=== PATIENT | female | born 1995 | race Caucasian/White ===

== ENCOUNTER 2018-02-07 12:00 | Outpatient (RCR) | payer MEDICAID ==
[2014-06-16 11:19] VITALS: Wt 63.2 kg
[2018-01-10 14:25] VITALS: BP 114/71
[2018-01-10 15:57] VITALS: BP 123/80
--- NOTE | 2018-01-10 19:38 | ONCOLOGY FOLLOW UP NOTE ---
EVENT DATE: January 10, 2018 DIAGNOSES 1. Hereditary hemochromatosis with homozygous state for H63D mutation. 2. History of ovarian cyst. 3. History of gastrointestinal disturbances with alternating diarrhea and constipation. CHIEF COMPLAINT The patient is here today for followup of her hereditary hemochromatosis. HEMATOLOGY HISTORY The patient is a 22-year-old female who had past medical history of ovarian cyst and gastrointestinal disturbances. As per patient, she has been evaluated by different doctors in the past for her GI symptoms without having an underlying disease for her illness. Her father had hemochromatosis and phlebotomy sessions. The patient is referred to evaluate for that. She had iron studies done by her doctor recently, which showed normal chem panel with normal TSH at 1.55. CBC showed white count 6.6, hemoglobin 15, hematocrit 43.3 , platelets 289,000. Iron studies showed serum iron of 139, transferrin 185, TIBC 259 and iron saturation 53.7%. Her ferritin was 123. Genetic testing for hemochromatosis came back positive for homozygous state for H63D mutation. HISTORY OF PRESENT ILLNESS Patient is here today for followup of her hereditary hemochromatosis. Patient did not show up for the last year. She is complaining of pain in the ankles and fingers. She is weak, tired and fatigued, but other than that her general condition is stable. PAST MEDICAL HISTORY 1. Ovarian cyst. 2. Gastrointestinal disturbances with alternating diarrhea and constipation. PAST SURGICAL HISTORY Insignificant. SOCIAL HISTORY The patient is single with one son. 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 She smokes about three cigarettes a day for the last two years. She occasionally drinks alcohol. No abuse of illicit drugs. FAMILY HISTORY Father has hemochromatosis. CURRENT MEDICATIONS None. ALLERGIES No known drug allergies. REVIEW OF SYSTEMS CONSTITUTIONAL: No appetite or weight change. No fever, chills or sweating. No recent infection. HEENT: Ears: No tinnitus or hearing problem. Nose: No nasal discharge or epistaxis. Throat: No sore throat or mouth ulcers. Eyes: No diplopia or visual changes. RESPIRATORY: No shortness of breath. No cough, expectoration or hemoptysis. CARDIOVASCULAR: No chest pain, orthopnea, or paroxysmal nocturnal dyspnea (PND) . No edema. No palpitations. GASTROINTESTINAL: No nausea or vomiting. She has alternating diarrhea and constipation. No change in bowel movements. No heartburn or swallowing difficulties. No abdominal pain. No jaundice. No hematemesis, melena or rectal bleeding. GENITOURINARY: No hematuria or dysuria. MUSCULOSKELETAL: Patient has pain in the ankles and fingers. NEUROLOGICAL: No tingling or numbness in the hands or feet. No headaches or convulsions. HEMATOLOGIC/LYMPHATIC: She is weak, tired and fatigued. SKIN: No skin rash or lumps. PSYCHIATRIC: No anxiety or depression. PHYSICAL EXAMINATION GENERAL: Looks stable. Well-developed, well-nourished, and in no acute distress. VITAL SIGNS: Blood pressure 114/71, pulse 75 per minute, respirations 16 per minute, temperature 98.4, pulse oximetry 96% on room air. HEENT: Head: Atraumatic. No sinus tenderness to palpation. Eyes: No icterus or conjunctivitis. Mouth and throat: No oral thrush or mucositis. NECK: Supple. No cervical or supraclavicular lymphadenopathy. LUNGS: Clear to auscultation and percussion bilaterally. HEART: Regular rate and rhythm. No gallops, murmurs, clicks or rubs. ABDOMEN: Soft and lax. No tenderness. No hepatosplenomegaly. No masses. EXTREMITIES: No cyanosis, clubbing or edema. LYMPHATICS: No peripheral lymphadenopathy. NEUROLOGICAL: Conscious, alert and oriented times three. No focal motor or sensory deficits. PSYCHIATRIC: Mood and affect appear normal. SKIN: No skin rash, bruise or purpuric eruption. DIAGNOSTIC DATA CBC showed white count 4000, hemoglobin 14.9, hematocrit 42.3 and platelet 251, 000. Serum iron 240, TIBC 255, iron saturation 80%. Ferritin is still pending. ASSESSMENT 1. Hereditary hemochromatosis with heterozygous state for h63D mutation of the HFE gene. Ferritin was 123 and iron saturation 53.7%. Patient received a phlebotomy session with drop of her iron saturation to 36.2% and ferritin 27. Patient's current ferritin is pending, but her iron saturation currently is 80% , which means that the patient will need phlebotomy to decrease that number to below 60% and to deplete the ferritin to below 50. I am planning to proceed with phlebotomy on a weekly basis as long as her hematocrit is above 30%. I will see her in a month with CBC, chem panel and iron studies with ferritin and I will check her CBC on a weekly basis until I will see her with next visit. 2. History of ovarian cyst. 3. History of gastrointestinal disturbance with alternating diarrhea and constipation in the past. PLAN 1. Continue followup. 2. Patient to return in one month with CBC, chem panel and iron studies. 3. CBC to be checked weekly. 4. Phlebotomize 500 mL of blood every week. 5. Consider phlebotomy if ferritin above 50 and/or iron saturation about 60%. 6. Patient to contact us for any new concerns or complaints. MTDD
[2018-01-16 13:07] VITALS: BP 110/88
[2018-01-16 13:58] VITALS: BP 110/72
[2018-01-23 13:41] VITALS: BP 108/76
[2018-01-23 14:43] VITALS: BP 104/79
--- NOTE | 2018-01-23 16:59 | Medical Nutrition Therapy ---
Nutritional Education Nutrition Education Topic: Other (Iron Content of Foods) Learning Readiness: Eager Teaching Methods: Discussion, Handout Response to Teaching: Verbalize understanding Teaching Recipient: Patient Nutrition Counseling: patient requested information about iron content of foods and hemochromatosis patient states she will try to reduce her red meat intake recommended low to moderate iron foods, 15 mg iron/day Nutrition Monitoring & Eval RD Patient Assessment Time: 15 minutes (less than 15 minutes ) RD Assessment Type: RD Education LAQUITA MADRID RDN, SLIME January 23, 2018 16:45
[2018-01-30 11:01] VITALS: BP 109/72
[2018-01-30 11:39] VITALS: BP 109/73
[~2018-02-07 12:00] MED LIST: ARI2 PO; CIPR-344 PO; CITA-145 PO; HYDR-4225 PO; HYDR-4309 PO; IBUP800T37 PO; IUD ASDIRECTED; LAMO25TA64 PO; LOR5/325 PO; ONDA4TAB PO; PROM-110 PO
[2018-02-07 12:29] LABS: PLATELET COUNT, AUTOMATED 286 K/uL (150-450)
[2018-02-07 12:31] VITALS: BP 102/73
[2018-02-07] MEDS ORDERED: LIDOCAINE/SOD BICARB 8.4% SYR ID PRN (12:40)
[2018-02-07] MEDS ORDERED: NS(*) 0.9% 100 ML BAG 100 ML IVPB PRN (12:40)
[2018-02-07] MEDS ORDERED: DEXTROSE 5%(*) 100 ML BAG 100 ML IVPB PRN (12:40)
[2018-02-07] MEDS ORDERED: NS(*) 0.9% 1000 ML BAG 1,000 ML IV SCH (13:40)
--- NOTE | 2018-02-07 16:55 | ONCOLOGY FOLLOW UP NOTE ---
EVENT DATE: February 07, 2018 DIAGNOSES 1. Hereditary hemochromatosis with homozygous state for H63D mutation. 2. History of ovarian cyst. 3. History of gastrointestinal disturbances with alternating diarrhea and constipation. CHIEF COMPLAINT The patient is here today for followup of her hereditary hemochromatosis. HEMATOLOGY HISTORY The patient is a 22-year-old female who had past medical history of ovarian cyst and gastrointestinal disturbances. As per patient, she has been evaluated by different doctors in the past for her GI symptoms without having an underlying disease for her illness. Her father had hemochromatosis and phlebotomy sessions. The patient is referred to evaluate for that. She had iron studies done by her doctor recently, which showed normal chem panel with normal TSH at 1.55. CBC showed white count 6.6, hemoglobin 15, hematocrit 43.3 , platelets 289,000. Iron studies showed serum iron of 139, transferrin 185, TIBC 259 and iron saturation 53.7%. Her ferritin was 123. Genetic testing for hemochromatosis came back positive for homozygous state for H63D mutation. HISTORY OF PRESENT ILLNESS Patient is here today for followup of her hereditary hemochromatosis. She is complaining that after her last two or three phlebotomies, she developed like syncope about two hours after the procedure when she went home. She is complaining of occasional nausea. She has also occasional headache. She is weak, tired and fatigued. PAST MEDICAL HISTORY 1. Ovarian cyst. 2. Gastrointestinal disturbances with alternating diarrhea and constipation. PAST SURGICAL HISTORY Insignificant. SOCIAL HISTORY The patient is single with one son. 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 She smokes about three cigarettes a day for the last two years. She occasionally drinks alcohol. No abuse of illicit drugs. FAMILY HISTORY Father has hemochromatosis. CURRENT MEDICATIONS None. ALLERGIES No known drug allergies. REVIEW OF SYSTEMS CONSTITUTIONAL: No appetite or weight change. No fever. She has chills. No sweating. No recent infection. HEENT: Ears: No tinnitus or hearing problem. Nose: No nasal discharge or epistaxis. Throat: No sore throat or mouth ulcers. Eyes: No diplopia or visual changes. RESPIRATORY: No shortness of breath. No cough, expectoration or hemoptysis. CARDIOVASCULAR: No chest pain, orthopnea, or paroxysmal nocturnal dyspnea (PND) . No edema. No palpitations. GASTROINTESTINAL: She has occasional nausea. No vomiting. She has alternating diarrhea and constipation. No change in bowel movements. No heartburn or swallowing difficulties. No abdominal pain. No jaundice. No hematemesis, melena or rectal bleeding. GENITOURINARY: No hematuria or dysuria. MUSCULOSKELETAL: Patient has pain in the ankles and fingers. NEUROLOGICAL: She has syncope about two hours after her phlebotomy for the last three sessions. She has also occasional headache. No tingling or numbness in the hands or feet. No convulsions. She has occasional headache. HEMATOLOGIC/LYMPHATIC: She is weak, tired and fatigued. SKIN: No skin rash or lumps. PSYCHIATRIC: No anxiety or depression. PHYSICAL EXAMINATION GENERAL: Looks stable. Well-developed, well-nourished, and in no acute distress. VITAL SIGNS: Blood pressure 102/73, pulse 80 per minute, respirations 16 per minute, temperature 98.5, pulse oximetry 100% on room air. HEENT: Head: Atraumatic. No sinus tenderness to palpation. Eyes: No icterus or conjunctivitis. Mouth and throat: No oral thrush or mucositis. NECK: Supple. No cervical or supraclavicular lymphadenopathy. LUNGS: Clear to auscultation and percussion bilaterally. HEART: Regular rate and rhythm. No gallops, murmurs, clicks or rubs. ABDOMEN: Soft and lax. No tenderness. No hepatosplenomegaly. No masses. EXTREMITIES: No cyanosis, clubbing or edema. LYMPHATICS: No peripheral lymphadenopathy. NEUROLOGICAL: Conscious, alert and oriented times three. No focal motor or sensory deficits. PSYCHIATRIC: Mood and affect appear normal. SKIN: No skin rash, bruise or purpuric eruption. DIAGNOSTIC DATA CBC showed white count 3.8, hemoglobin 11.8, hematocrit 34, platelets 286,000. Serum iron 204, TIBC 255, iron saturation 80%. Ferritin is 51. Her iron studies were done on January 20, 2018. ASSESSMENT 1. Hereditary hemochromatosis with heterozygous state for h63D mutation. Ferritin was 123 and iron saturation 53.7%. Patient received a phlebotomy session with drop of her iron saturation to 36.2% and ferritin 27. Her last ferritin level on January 10, 2018 was 51, and iron saturation 80%. Patient complained of syncope for the last three sessions of phlebotomy, and for this reason I am planning to run 2 L of normal saline with the start of her phlebotomy sessions. I am planning to do phlebotomy whenever her iron saturation is above 60% and ferritin above 50%. And I will continue with phlebotomy as long as her hematocrit is above 30%. I am planning to see her again in two months with CBC, chem panel, iron studies with ferritin, and I will check her CBC every other week. 2. History of ovarian cyst. 3. History of gastrointestinal disturbance with alternating diarrhea and constipation. PLAN 1. Continue followup. 2. Patient to return in two months with CBC, chem panel and iron studies. 3. CBC to be checked every other week. 4. Phlebotomize 500 mL of blood every other week as indicated. 5. Consider phlebotomy if ferritin above 50 and/or iron saturation about 60%. 6. Infuse 2 L of normal saline over three hours with the start of her phlebotomy sessions. 7. Patient to contact us for any new concern or complaints. CHRISTIAND
== END 2018-02-08 10:01 | disposition home or self-care (01) ==
LOC: ONC 12:00
PROVIDERS: ATTEND Internal Medicine Hematology
DX: E83.110 Hereditary hemochromatosis (principal); R53.1 Weakness; R53.83 Other fatigue; F17.210 Nicotine dependence, cigarettes, uncomplicated
CPT/HCPCS: 36415; 82728; 83540; 83550; 85025; 85027; 96360; 96361; 99195; G0463; J7030; 82040; 82247; 82310; 82374; 82435; 82565; 82947; 84075; 84132; 84155; 84295; 84450; 84460; 84520; 99212

== ENCOUNTER 2018-05-03 08:30 | Outpatient (RCR) | payer MEDICAID ==
[2014-06-16 11:19] VITALS: Wt 63.6 kg
[2018-04-30 10:32] LABS: PLATELET COUNT, AUTOMATED 246 K/uL (150-450)
[~2018-05-03 08:30] MED LIST changes: -HYDR-4309 PO; +HYDR-653 PO
[2018-05-03 08:42] VITALS: BP 116/80
--- NOTE | 2018-05-03 16:07 | ONCOLOGY FOLLOW UP NOTE ---
EVENT DATE: May 03, 2018 DIAGNOSES 1. Hereditary hemochromatosis with homozygous state for H63D mutation. 2. History of ovarian cyst. 3. History of gastrointestinal disturbances with alternating diarrhea and constipation. CHIEF COMPLAINT The patient is here today for followup of her hereditary hemochromatosis. HEMATOLOGY HISTORY The patient is a 22-year-old female who had past medical history of ovarian cyst and gastrointestinal disturbances. As per patient, she has been evaluated by different doctors in the past for her GI symptoms without having an underlying disease for her illness. Her father had hemochromatosis and phlebotomy sessions. The patient is referred to evaluate for that. She had iron studies done by her doctor recently, which showed normal chem panel with normal TSH at 1.55. CBC showed white count 6.6, hemoglobin 15, hematocrit 43.3, platelets 289,000. Iron studies showed serum iron of 139, transferrin 185, TIBC 259 and iron saturation 53.7%. Her ferritin was 123. Genetic testing for hemochromatosis came back positive for homozygous state for H63D mutation. HISTORY OF PRESENT ILLNESS Patient is here today for followup of her hereditary hemochromatosis. She is stable, but she is complaining of alternating diarrhea and constipation. She has pain in her ankles. She has frequent headaches and she is weak, tired and fatigued most of the time. PAST MEDICAL HISTORY 1. Ovarian cyst. 2. Gastrointestinal disturbances with alternating diarrhea and constipation. PAST SURGICAL HISTORY Insignificant. SOCIAL HISTORY The patient is single with one son. 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 She smokes about three cigarettes a day for the last two years. She occasionally drinks alcohol. No abuse of illicit drugs. FAMILY HISTORY Father has hemochromatosis. CURRENT MEDICATIONS None. ALLERGIES No known drug allergies. REVIEW OF SYSTEMS CONSTITUTIONAL: No appetite or weight change. No fever, chills or sweating. No recent infection. HEENT: Ears: No tinnitus or hearing problem. Nose: No nasal discharge or epistaxis. Throat: No sore throat or mouth ulcers. Eyes: No diplopia or visual changes. RESPIRATORY: No shortness of breath. No cough, expectoration or hemoptysis. CARDIOVASCULAR: No chest pain, orthopnea, or paroxysmal nocturnal dyspnea (PND). No edema. No palpitations. GASTROINTESTINAL: No nausea or vomiting. She has alternating diarrhea and constipation. No change in bowel movements. No heartburn or swallowing difficulties. No abdominal pain. No jaundice. No hematemesis, melena or rectal bleeding. GENITOURINARY: No hematuria or dysuria. MUSCULOSKELETAL: She has pain in her ankles. NEUROLOGICAL: No tingling or numbness in the hands or feet. She has frequent headaches. No convulsions. HEMATOLOGIC/LYMPHATIC: No bleeding or easy bruising. She is weak, tired and fatigued. No enlarged lymph nodes. SKIN: No skin rash or lumps. PSYCHIATRIC: No anxiety or depression. PHYSICAL EXAMINATION GENERAL: Looks stable. Well-developed, well-nourished, and in no acute distress. VITAL SIGNS: Blood pressure 116/80, pulse 76 per minute, respirations 16 per minute, temperature 96.7, pulse oximetry 96% on room air. HEENT: Head: Atraumatic. No sinus tenderness to palpation. Eyes: No icterus or conjunctivitis. Mouth and throat: No oral thrush or mucositis. NECK: Supple. No cervical or supraclavicular lymphadenopathy. LUNGS: Clear to auscultation and percussion bilaterally. HEART: Regular rate and rhythm. No gallops, murmurs, clicks or rubs. ABDOMEN: Soft and lax. No tenderness. No hepatosplenomegaly. No masses. EXTREMITIES: No cyanosis, clubbing or edema. LYMPHATICS: No peripheral lymphadenopathy. NEUROLOGICAL: Conscious, alert and oriented times three. No focal motor or sensory deficits. PSYCHIATRIC: Mood and affect appear normal. SKIN: No skin rash, bruise or purpuric eruption. DIAGNOSTIC DATA CBC showed white count 4.4, hemoglobin 14.5, hematocrit 42.8, platelets 246,000. Chem panel totally normal except carbon dioxide 18. Serum iron 52, TIBC 329, iron saturation 15.8% and ferritin 9. ASSESSMENT 1. Hereditary hemochromatosis with heterozygous state for h63D mutation. Ferritin was 123 and iron saturation was 53.7%. Patient received a phlebotomy session with drop of her iron saturation to 36.2 and ferritin 27. Her current iron studies show a ferritin of 9 and iron saturation 15.8. No indication for phlebotomy. My target for phlebotomy will be ferritin less than 50 and/or iron saturation less than 60%. I am planning to see the patient in four months from now with CBC, chem panel, iron studies with ferritin. During her phlebotomy session patient complained of syncope and for this reason we will run 2 L normal saline with the start of her phlebotomy sessions in the future. We will proceed with phlebotomy as long as her hematocrit is above 30%. 2. History of ovarian cyst. 3. History of gastrointestinal disturbance with alternating diarrhea and constipation. PLAN 1. Continue followup. 2. Consider phlebotomy if ferritin above 50 and/or iron saturation more than 60%. 3. Patient to return in four months with CBC, chem panel, iron studies with ferritin. 4. Patient to contact us for any new concern or complaints. 5. Infuse 2 L of normal saline over three hours with the start of her phlebotomy sessions if indicated. MTDD
== END 2018-07-25 ==
LOC: ONC 08:30
PROVIDERS: ATTEND Internal Medicine Hematology
DX: E83.110 Hereditary hemochromatosis (principal); R53.1 Weakness; R53.83 Other fatigue
CPT/HCPCS: 36415; 82728; 83540; 83550; 85025; G0463; 82040; 82247; 82310; 82374; 82435; 82565; 82947; 84075; 84132; 84155; 84295; 84450; 84460; 84520; 99212

== ENCOUNTER 2018-09-12 21:53 | Emergency (ER) | payer MEDICAID ==
[2014-06-16 11:19] VITALS: Wt 63.5 kg
[2018-09-12] MEDS ORDERED: CITA-145 PO (22:04)
[2018-09-12] MEDS ORDERED: ONDANSETRON 4 MG/2 ML VIAL IVP ONE (22:30)
[2018-09-12] MEDS ORDERED: NS(*) 0.9% 1000 ML BAG 1,000 ML IV ONE ×2 (22:30→23:05)
--- NOTE | 2018-09-12 22:37 | ER Report ---
History and Physical Time Seen By MD: 22:37 Hx. of Stated Complaint: patient states she has been having nausea, vomiting, and diarrhea for the last 8hours. patient having abominal pain and migraine as well. HPI/ROS CHIEF COMPLAINT: nausea and vomiting and diarrhea HISTORY OF PRESENT ILLNESS: This is a 23 year old female. Started having vomiting and diarrhea earlier today, about 8 hours. Has chronic stomach and bowel issues. Son came home from his fathers house with vomiting and diarrhea. She is not sure if she may have eaten some bad [employer] Brian. No problems with urination. she does have a headache as well. No fevers or chills with this. No cough or shortness of breath. Allergies: Coded Allergies: Latex, Natural Rubber (Verified Adverse Reaction, Intermediate, 09/12/18) Home Meds Active Scripts Ketorolac Tromethamine (KETOROLAC TROMETHAMINE) 10 Mg Tab, 10 MG PO Q6H PRN for PAIN, #12 TAB 0 Refills Prov:RESHMA BATES MD 09/13/18 Promethazine Hcl (PROMETHAZINE HCL) 25 Mg Tablet, 25 MG PO Q8H PRN for NAUSEA/VOMITING, #20 TAB 0 Refills Prov:RESHMA BATES MD 09/13/18 Reported Medications Citalopram Hydrobromide (CITALOPRAM HBR) 20 Mg Tablet, 40 MG PO QDAY, #5 TAB 09/12/18 Reviewed Nurses Notes: Yes Hx Smoking: Yes (2-3 cigarettes/day for 1.5 yrs) Smoking Status: Current: Every Day Smoker Exposure to Second Hand Smoke?: Yes Hx Substance Use Disorder: No Hx Alcohol Use: Yes Constitutional Vital Sign - Last 24 Hours 09/12/18 09/12/18 09/12/18 09/12/18 21:58 22:23 22:30 22:38 Temp 97.6 Pulse 67 81 85 Resp 24 B/P (MAP) 112/79 118/79 (92) Pulse Ox 99 92 97 O2 Delivery Room Air 09/12/18 09/12/18 09/12/18 09/12/18 23:00 23:08 23:30 23:38 Pulse 82 83 B/P (MAP) 104/71 (82) 108/73 (85) Pulse Ox 88 97 09/12/18 09/12/18 09/13/18 09/13/18 23:43 23:58 00:00 00:28 Pulse 85 ??? 85 B/P (MAP) 104/65 (78) Pulse Ox 100 95 95 09/13/18 09/13/18 09/13/18 00:30 00:40 00:45 Pulse ??? 89 B/P (MAP) 106/70 (82) Pulse Ox 95 94 Intake and Output 09/12/18 09/12/18 09/13/18 15:00 23:00 07:00 Intake Total 1000 ml 1000 ml Balance 1000 ml 1000 ml Physical Exam General Appearance: The patient is alert. No acute distress. Eyes: Pupils are equal, round. No pallor, injection or icterus. ENT: Mucous membranes are moist. Normal oral mucosa. Posterior oropharynx is normal. Neck: Supple and non tender. No lymphadenopathy. Respiratory: Lungs are clear to auscultation. Cardiovascular: Regular rate and rhythm. No murmurs, gallops or rubs. Normal capillary refill. Gastrointestinal: Abdomen is soft and with upper abdominal tenderness. Nondistended. No rebound or guarding. No masses or organomegaly. Hyperactive bowel sounds. No costovertebral angle tenderness with percussion. Neurological: Alert and oriented x3. Cranial nerves II through XII show no acute deficits on my exam. No focal neurologic deficits in the extremities. Skin: Warm and dry. No rashes. Musculoskeletal: No tenderness in palpation of the cervical, thoracic and lumbar spine. DIFFERENTIAL DIAGNOSIS: After history and physical exam, differential diagnosis was considered for nausea/vomiting and diarrhea, most likely viral in origin, bu t cannot rule out food poisoning as well. Medical Decision Making Data Points Result Diagram: 09/12/18221409/12/182214 Laboratory Hematology Test 09/12/18 22:15 09/12/18 22:33 Red Blood Count 5.48 M/uL (4.17-5.56) Mean Corpuscular Volume 90.8 fL (80.0-96.0) Mean Corpuscular Hemoglobin 31.6 pg (26.0-33.0) Mean Corpuscular Hemoglobin Concent 34.8 g/dL (32.0-36.0) Red Cell Distribution Width 12.8 % (11.5-14.5) Mean Platelet Volume 7.8 fL (7.2-11.1) Neutrophils (%) (Auto) 80.6 % (39.4-72.5) Lymphocytes (%) (Auto) 13.3 % (17.6-49.6) Monocytes (%) (Auto) 5.1 % (4.1-12.4) Eosinophils (%) (Auto) 0.8 % (0.4-6.7) Basophils (%) (Auto) 0.2 % (0.3-1.4) Nucleated RBC Relative Count (auto) 0.1 /100WBC Neutrophils # (Auto) 9.0 K/uL (2.0-7.4) Lymphocytes # (Auto) 1.5 K/uL (1.3-3.6) Monocytes # (Auto) 0.6 K/uL (0.3-1.0) Eosinophils # (Auto) 0.1 K/uL (0.0-0.5) Basophils # (Auto) 0.0 K/uL (0.0-0.1) Nucleated RBC Absolute Count (auto) 0.01 K/uL Sodium Level 142 mmol/L (137-145) Potassium Level 3.6 mmol/L (3.5-5.0) Chloride Level 107 mmol/L (98-107) Carbon Dioxide Level 22 mmol/L (22-31) Blood Urea Nitrogen 12 mg/dl (7-18) Creatinine 0.90 mg/dl (0.52-1.04) Glomerular Filtration Rate Calc > 60.0 Random Glucose 100 mg/dl (75-110) Calcium Level 10.0 mg/dl (8.4-10.2) Total Bilirubin 0.7 mg/dl (0.2-1.3) Aspartate Amino Transf (AST/SGOT) 25 U/L (0-35) Alanine Aminotransferase (ALT/SGPT) 22 U/L (0-56) Alkaline Phosphatase 71 U/L (0-126) Total Protein 8.7 g/dl (6.3-8.2) Albumin 5.1 g/dl (3.5-5.0) Urine Color Yellow Urine Clarity Cloudy Urine pH 5.0 pH (4.8-9.5) Urine Specific [place] 1.023 Urine Protein Negative mg/dL (NEGATIVE) Urine Glucose (UA) Negative mg/dL (NEGATIVE) Urine Ketones Negative mg/dL (NEGATIVE) Urine Blood Negative (NEGATIVE) Urine Nitrite Negative (NEGATIVE) Urine Bilirubin Negative (NEGATIVE) Urine Urobilinogen Negative mg/dL (0.2-1.9) Urine Leukocyte Esterase Moderate (NEGATIVE) Urine RBC 11 /HPF (0-2/HPF) Urine WBC 16 /HPF (0-5/HPF) Urine Squamous Epithelial Cells Many /LPF (</=FEW) Urine Bacteria Few /HPF (NONE-FEW) Urine Mucus Few /HPF (NONE-FEW) Chemistry Test 09/12/18 22:15 09/12/18 22:33 White Blood Count 11.2 k/uL (4.5-11.0) Red Blood Count 5.48 M/uL (4.17-5.56) Hemoglobin 17.3 g/dL (12.0-16.0) Hematocrit 49.8 % (34.0-47.0) Mean Corpuscular Volume 90.8 fL (80.0-96.0) Mean Corpuscular Hemoglobin 31.6 pg (26.0-33.0) Mean Corpuscular Hemoglobin Concent 34.8 g/dL (32.0-36.0) Red Cell Distribution Width 12.8 % (11.5-14.5) Platelet Count 297 K/uL (150-450) Mean Platelet Volume 7.8 fL (7.2-11.1) Neutrophils (%) (Auto) 80.6 % (39.4-72.5) Lymphocytes (%) (Auto) 13.3 % (17.6-49.6) Monocytes (%) (Auto) 5.1 % (4.1-12.4) Eosinophils (%) (Auto) 0.8 % (0.4-6.7) Basophils (%) (Auto) 0.2 % (0.3-1.4) Nucleated RBC Relative Count (auto) 0.1 /100WBC Neutrophils # (Auto) 9.0 K/uL (2.0-7.4) Lymphocytes # (Auto) 1.5 K/uL (1.3-3.6) Monocytes # (Auto) 0.6 K/uL (0.3-1.0) Eosinophils # (Auto) 0.1 K/uL (0.0-0.5) Basophils # (Auto) 0.0 K/uL (0.0-0.1) Nucleated RBC Absolute Count (auto) 0.01 K/uL Glomerular Filtration Rate Calc > 60.0 Calcium Level 10.0 mg/dl (8.4-10.2) Total Bilirubin 0.7 mg/dl (0.2-1.3) Aspartate Amino Transf (AST/SGOT) 25 U/L (0-35) Alanine Aminotransferase (ALT/SGPT) 22 U/L (0-56) Alkaline Phosphatase 71 U/L (0-126) Total Protein 8.7 g/dl (6.3-8.2) Albumin 5.1 g/dl (3.5-5.0) Urine Color Yellow Urine Clarity Cloudy Urine pH 5.0 pH (4.8-9.5) Urine Specific [place] 1.023 Urine Protein Negative mg/dL (NEGATIVE) Urine Glucose (UA) Negative mg/dL (NEGATIVE) Urine Ketones Negative mg/dL (NEGATIVE) Urine Blood Negative (NEGATIVE) Urine Nitrite Negative (NEGATIVE) Urine Bilirubin Negative (NEGATIVE) Urine Urobilinogen Negative mg/dL (0.2-1.9) Urine Leukocyte Esterase Moderate (NEGATIVE) Urine RBC 11 /HPF (0-2/HPF) Urine WBC 16 /HPF (0-5/HPF) Urine Squamous Epithelial Cells Many /LPF (</=FEW) Urine Bacteria Few /HPF (NONE-FEW) Urine Mucus Few /HPF (NONE-FEW) Urinalysis Test 09/12/18 22:33 Urine Color Yellow Urine Clarity Cloudy Urine pH 5.0 pH (4.8-9.5) Urine Specific [place] 1.023 Urine Protein Negative mg/dL (NEGATIVE) Urine Glucose (UA) Negative mg/dL (NEGATIVE) Urine Ketones Negative mg/dL (NEGATIVE) Urine Blood Negative (NEGATIVE) Urine Nitrite Negative (NEGATIVE) Urine Bilirubin Negative (NEGATIVE) Urine Urobilinogen Negative mg/dL (0.2-1.9) Urine Leukocyte Esterase Moderate (NEGATIVE) Urine RBC 11 /HPF (0-2/HPF) Urine WBC 16 /HPF (0-5/HPF) Urine Squamous Epithelial Cells Many /LPF (</=FEW) Urine Bacteria Few /HPF (NONE-FEW) Urine Mucus Few /HPF (NONE-FEW) ED Course/Re-evaluation Clinical Indication for ER IV: Hydration, IV Access ED Course Improved with Zofran and a liter of normal saline. Still with headache, so To radol and Phenergan given. A second liter of normal saline given as well. Decision to Disposition Date: Sep 13, 2018 Decision to Disposition Time: 00:37 Depart Departure Latest Vital Signs Vital Signs Date Time Temp Pulse Resp B/P (MAP) Pulse Ox O2 Delivery O2 Flow Rate FiO2 09/13/18 00:45 89 94 09/13/18 00:30 106/70 (82) 09/12/18 21:58 97.6 24 Room Air Impression: Primary Impression: Vomiting and diarrhea Condition: Improved Disposition: HOME OR SELF-CARE Referrals: BOB FAITH MD (PCP) New Scripts Ketorolac Tromethamine (KETOROLAC TROMETHAMINE) 10 Mg Tab 10 MG PO Q6H PRN for PAIN, #12 TAB 0 Refills Prov: RESHMA BATES MD 09/13/18 Promethazine Hcl (PROMETHAZINE HCL) 25 Mg Tablet 25 MG PO Q8H PRN for NAUSEA/VOMITING, #20 TAB 0 Refills Prov: RESHMA BATES MD 09/13/18 Patient Instructions: Acute Nausea and Vomiting (ED) Additional Instructions: Rest and increase fluid intake. Take Phenergan 25mg tablets, one every 8 hours as needed for vomiting or nausea. Take Toradol 10mg, one every 6 hours as needed for headache or pain RESHMA BATES MD Sep 12, 2018 22:37
[2018-09-12 22:40] LABS: PLATELET COUNT, AUTOMATED 297 K/uL (150-450)
[2018-09-12] MEDS ORDERED: PROMETHAZINE 25 MG/ML 1 ML AMP IVP ONE (23:15)
[2018-09-12] MEDS ORDERED: KETOROLAC 15 MG/ML VIAL IVP ONE (23:15)
[2018-09-13 00:30] VITALS: BP 106/70
[2018-09-13] MEDS ORDERED: KET10 PO (00:39)
[2018-09-13] MEDS ORDERED: PROM-110 PO (00:39)
[2018-09-13] MEDS ORDERED: PROMETHAZINE HCL 25 MG TAB TH 2 TAB/BOTTLE PO ONE (00:40)
[2018-09-13] MEDS ORDERED: KETOROLAC TROM 10MG TAB PO ONE (00:40)
== END 2018-09-13 00:51 | disposition home or self-care (01) ==
LOC: ER 22:27
DX: R11.2 Nausea with vomiting, unspecified (principal)
CPT/HCPCS: 81001; 85025; 96361; 96374; 96375; 99284; J1885; J2405; J2550; J7030; 82040; 82247; 82310; 82374; 82435; 82565; 82947; 84075; 84132; 84155; 84295; 84450; 84460; 84520

== ENCOUNTER 2019-02-10 12:30 | Outpatient (RCR) | payer MEDICAID ==
[2014-06-16 11:19] VITALS: BMI 26.6
[2019-02-05 15:49] LABS: PLATELET COUNT, AUTOMATED 251 K/uL (150-450)
[~2019-02-10 12:30] MED LIST changes: +KET10 PO
[2019-02-10 12:47] VITALS: BP 113/86
[2019-02-10] MEDS ORDERED: LIDOCAINE/SOD BICARB 8.4% SYR ID PRN (12:55)
[2019-02-10 13:26] VITALS: BP 111/73
== END 2019-03-12 11:03 | disposition home or self-care (01) ==
LOC: SPU 12:30
PROVIDERS: ATTEND Internal Medicine Hematology
DX: E83.119 Hemochromatosis, unspecified (principal)
CPT/HCPCS: 36415; 82040; 82247; 82310; 82374; 82435; 82565; 82728; 82947; 83540; 83550; 84075; 84132; 84155; 84295; 84450; 84460; 84520; 85025; 99195

== ENCOUNTER → 2019-03-21 | Outpatient (CLI) | payer MEDICAID ==
[2014-06-16 11:19] VITALS: BMI 26.6
--- NOTE | 2019-03-21 09:42 | RADIOLOGY IMAGING REPORT ---
FACILITY: [facility] PATIENT NAME: Kimberlyn Ramsay : 1995 MR: [id number] V: [id number] EXAM DATE: ORDERING PHYSICIAN: CAN PAREDES TECHNOLOGIST: Location: [facility] - [place], [place] Patient: Kimberlyn Ramsay : 1995 Visit/Account:[id number] Date of Sevice: 03/21/2019 TRANSVAGINAL NON-OB HISTORY: Left lower quadrant pain TECHNIQUE: There has been satisfactory transvaginal ultrasonic evaluation of the pelvis. COMPARISON: None. FINDINGS: Uterus: measures: 7.6 cm length x 2.5 cm AP x 4.8 cm transverse. Myometrium: Unremarkable. Endometrium: Unremarkable; endometrial thickness 6 mm. Cervix: Grossly negative. Ovaries: Right - normal in size, contour and echotexture Left - normal in size, contour and echotexture Blood flow is documented in each ovary by duplex Doppler ultrasound. Adnexa: Distended adnexal venous vasculature is noted. This can be an incidental finding or seen in the setting of pelvic congestion syndrome. Free pelvic fluid: None. Bladder: Empty IMPRESSION: 1. No acute pelvic process. 2. Incidental finding as above. Report Dictated By: Cl Schultz DO at 03/21/2019 9:31 AM Report E-Signed By: Cl Schultz DO at 03/21/2019 9:34 AM WSN:[id number]
== END ==
LOC: US 08:14
PROVIDERS: ATTEND Physician Assistant
DX: R10.31 Right lower quadrant pain (principal); R11.0 Nausea; N92.0 Excessive and frequent menstruation with regular cycle
CPT/HCPCS: 76830

== ENCOUNTER → 2019-03-21 | Outpatient (CLI) | payer MEDICAID ==
[2014-06-16 11:19] VITALS: BMI 26.6
== END ==
LOC: US 01:23
PROVIDERS: ATTEND Physician Assistant
DX: R10.32 Left lower quadrant pain (principal); R11.0 Nausea; N92.0 Excessive and frequent menstruation with regular cycle